=== PATIENT | female | born 1960 | race Caucasian/White ===

== ENCOUNTER → 2024-09-11 08:00 | Outpatient (BNVA) | payer MEDICARE, SELFPAY | PROVIDERS: PCP Electrodiagnostic Medicine; Visit Provider Physician Assistant | DX: S52.502A Unspecified fracture of the lower end of left radius, initial encounter for closed fracture (principal); S52.602A Unspecified fracture of lower end of left ulna, initial encounter for closed fracture; W19.XXXA Unspecified fall, initial encounter; Y93.89 Activity, other specified | CPT/HCPCS: 73110 ==

== ENCOUNTER 2024-09-11 09:04 | Outpatient (CLI) | payer MEDICARE, SELFPAY | END 2024-09-11 09:05 | disposition home or self-care (01) | LOC: SPT 09:06 | PROVIDERS: PCP Electrodiagnostic Medicine; Visit Provider Physician Assistant | DX: Z46.89 Encounter for fitting and adjustment of other specified devices (principal); S62.102S Fracture of unspecified carpal bone, left wrist, sequela; X58.XXXS Exposure to other specified factors, sequela | CPT/HCPCS: 99204; L3908 ==

== ENCOUNTER 2024-09-17 09:45 | Day surgery (SDC) | payer MEDICARE, SELFPAY ==
[2024-09-17] VITALS (9 sets, daily range): BP systolic 124–167; BP diastolic 55–89; PULSE 69–81; RESP 16; TEMP 36.2; O2SAT 94–100; BMI 22.3
--- NOTE | 2024-09-17 | XR_ITS ---
WS: [id number] Exam: XR wrist LT 2V [id number] Date/Time of Exam: 09/17/2024 12:00 AM Reason For Exam: IMANI PICS Intraoperative images of the LEFT wrist demonstrate plate and screw fixation involving a fracture of the distal radius. Fracture alignment is anatomic for healing.
[2024-09-17] MEDS: acetaminophen 1,000 MG/100 ML PIGGYBACK 400 MG IV (10:45)
[2024-09-17] MEDS: ketorolac 30 mg/mL INJ IVP (10:45)
[2024-09-17] MEDS: sodium chloride 0.9% 1,000 ML 30 ML IV (10:47)
--- NOTE | 2024-09-17 10:50 | W.PM.OPSUD ---
Surgery/Procedure H&P Update DATE OF PROCEDURE: September 17, 2024 DATE H&P PERFORMED: 09/11/24 H&P UPDATE INFORMATION: I have reviewed H&P completed within last 30 days, I have examined patient prior to procedure, No changes to prior documentation and Changes to prior documentation as noted here PREOP DIAGNOSIS: Left distal radius and ulnar styloid fracture PRIMARY INDICATION FOR PROCEDURE: Left distal radius and ulnar styloid fracture with dorsal angulation PLANNED PROCEDURE: Operation Date: 09/17/24 12:10 Proposed Procedures p ORIF Wrist ORIF Distal Radius(Left) - Burton Santoyo DO
--- NOTE | 2024-09-17 10:51 | ANES.PREANE2 ---
Pre-Anesthetic Assessment Height/Weight: Height 5 ft 4 in Weight 130 lb O2 Del Method Room Air 09/17/24 10:28 Preop Diagnosis: Radial fracture Operation Date: 09/17/24 12:10 Proposed Procedures p ORIF Wrist ORIF Distal Radius(Left) - Burton Santoyo, DO Was Beta Luly taken within 24 hours: N/A Was Clonidine taken within 24 hours: N/A Last intake: Intake Last Liquid Date 09/16/24 Last Liquid Time 20:00 Last Solid Date 09/16/24 Last Solid Time 20:00 Social No alcohol and No tobacco Exam alert, oriented x 3, clear to auscultation bilaterally and regular rate & rhythm Airway Submandibular: within normal limits Cervical ROM: within normal limits Mallampati: Class III Dentition: full Anesthetic Plan ASA status: 2 Anesthesia: General Other: No prior issues with anesthesia NPO since yesterday history of hypertension on amlodipine GERD on omeprazole Denies any pulmonary issues METs greater than 4 Plan for general anesthesia with preop nerve block Medications/Allergies Home Medications Medication Instructions Recorded Confirmed Last Taken Type simvastatin 20 mg tablet 20 mg PO DAILY 12/28/19 09/16/24 09/16/24 History 10in velcro wrist brace #1 ea 09/11/24 09/11/24 Unknown Rx amlodipine 5 mg tablet 5 mg PO DAILY 09/11/24 09/16/24 09/17/24 History escitalopram oxalate 20 mg tablet 20 mg PO DAILY 09/11/24 09/16/24 09/16/24 History hydroxyzine HCl 10 mg tablet 10 mg PO TID PRN Nausea 09/11/24 09/16/24 Unknown History omeprazole 40 mg capsule,delayed 40 mg PO BID 09/11/24 09/16/24 09/16/24 History release Allergies Allergy/AdvReac Type Severity Reaction Status Date / Time No Known Allergies Allergy Verified 09/11/24 08:10 Current Medications Generic Name Dose Route Start Last Admin Trade Name Freq PRN Reason Stop Dose Admin Sodium Chloride 1,000 mls @ 30 mls/hr 09/17/24 10:00 09/17/24 10:47 Sodium Chloride 0.9% IV 09/18/24 09:59 30 mls/hr .Q24H SEYMOUR Administration PFSH Anesthesia Social History Smoking and tobacco/nicotine status: never used tobacco/nicotine Data Anesthesia Cardiac Studies: No Data to Display
--- NOTE | 2024-09-17 11:06 | ANES.PROC ---
Anesthesia Procedures Procedure/Date: 09/17/24 Nerve Block ^: Nerve Block 1: Main Anesthesia: other (100mcg fentanyl, 2mg versed) Time Out Performed: Yes Consent: requested by attending/covering physician and from patient Nerve block location: supraclavicular Anesthesia monitors applied: pulse oximetry, EKG, BP cuff and oxygen Nerve block position: supine Anesthetic Used: ropivicaine 0.5% Amount of anesthesia used (mL): 30 Ultrasound used to: recognize landmarks Nerve Stimulator Used?: Yes Interscalene/Femoral BLK: other needle (pjunk 4inch) Injection: neg aspiration of heme Patient Tolerated Procedure: well Complications: none
--- NOTE | 2024-09-17 11:19 | PC.NURSE ---
1100: left shoulder nerve block performed by KETTY. Using ultrasound guidance 30 ml of .5% ropivicaine was injected
[2024-09-17] MEDS: ceFAZolin 2,000 MG in sodium chloride 0.9% (plus) 50 ML 100 MG IV (11:42)
--- NOTE | 2024-09-17 14:06 | P.BOP_ITS ---
Date of Procedure: 09/17/2024 Surgeon: Burton Santoyo DO Supervisor Felting(s): None Procedure(s) performed: Left distal radius open reduction internal fixation (2 part extra-articular) Findings of the procedure(s): Patient is found to have 2 part extra-articular left distal radius fracture with considerable dorsal angulation patient underwent procedure as planned without issues or complications with volar plating. Placed in a volar splint. Will follow-up in the orthopedic office in roughly 2 weeks postop for splint takedown and incision check and suture Estimated blood loss: 10 mL Specimen(s) removed: None Post-operative diagnosis: Left distal radius and ulnar styloid fracture
--- NOTE | 2024-09-17 14:07 | P.OP_ITS ---
Operative Report Date of procedure: September 17, 2024 Surgeon: Burton Santoyo DO Procedure: Preop Diagnosis ?Left?distal?radius fracture ? Procedure: Post-op diagnosis: Same, 2 part extra-articular Procedure done: Left?distal?radius open reduction internal fixation, 2 part extra-articular Implants: ?Arthrex left distal radius narrow sterile implant kit Surgeon: Burton Santoyo DO Anesthesia: General and nerve Block (Regional) Estimated blood loss: 10 mL Tourniquet time: 30 minutes IV fluids: See anesthesia record Complications: None Findings: See operative report narrative Condition: stable Disposition: same day Brief History: Patient is a 64-year-old female who presented to my office for a left?distal?radius fracture.? Patient has significant dorsal comminution and angulation. patient active and at this point time through shared decision making patient like to proceed with a left?distal?radius?ORIF.? We had a detailed discussion in the office about nonoperative and operative intervention.? At this point time I feel through shared decision? best option would be open reduction internal fixation she is active and already has a considerable dorsal angulation?? as result through shared decision making patient would like to proceed with?ORIF?left?distal?radius fracture.? Detail the risk benefits complication alternatives to treatment option.? Understanding risk for surgery patient elects to proceed with surgical intervention.? All questions been answered at this time. Procedure: Patient seen and evaluated in the preoperative holding area.? Consent reviewed and signed with patient.? Correct extremities were marked and consent was revie wed and signed.? Patient was seen and evaluated by anesthesia department.? Underwent regional anesthesia. Once cleared for surgery pt was taken back to the operative suite.? Patient was then transported into the operative suite and kept on the OR gurney, all bony prominences well-padded patient was appropriate secured to bed in supine position.? An armboard was applied to the left upper extremity.? The left upper extremity had a nonsterile tourniquet applied.? Patient subsequently was then prepped and draped in standard orthopedic fashion she underwent anesthesia per the anesthesia department.? A final timeout was performed.? Patient received appropriate preoperative antibiotics. Prior to sterile prep I did x-ray her arm and determine incised for a sterile implant size narrow volar distal radius locking plate with Arthrex. Esmarch was used exsanguinate the left upper extremity and tourniquet was insufflated to 250 mmHg. A standard modified FCR volar approach was performed to the left?distal?radius.? Sharp scalpel incision through skin and subcutaneous tissue.? I then switched to Littler dissection scissors identify the FCR tendon releases out of the sheath both proximally and?distally mobilized the tendon ulnarly and then subsequently incised the floor of the FCR tendon sheath with care to just incise the floor.? I then bluntly sweep the FPL tendon muscle belly ulnarly and placed blunt self- retaining retractor.? At this point time I direct visualization of the pronator quadratus which was incised in standard L fashion off the?radial and?distal?border in the?distal?radius and fracture site was scraped clean of interposed muscle belly.? I then identified the 2 part extra- articular?distal?radius fracture.? This was subsequently opened above and freed of interposing muscle belly as well as periosteum and fracture hematoma.? I did have to utilize my [place] which was placed through the fracture pattern and disengage the fracture and performed manual manipulation and anatomic reduction of the?distal?radius fracture.? ?Once satisfied with reduction and had appropriate anatomic reduction of the volar cortex.? This was confirmed with mini C arm in multiple orthogonal i maging.? At this point time? I selected a Arthrex anatomic?distal?radius plate sterile implant kit utilizing a narrow 3-hole plate which would have appropriate spread?distally.? This was then placed up to the?distal?radius while maintaining my reduction, pins were placed?distally and proximally to confirm appropriate placement of the plate along the?distal?radius.? Minor adjustments were made and once I was satisfied I then subsequently drilled a bicortical 3.5 screw proximally in the oblong hole to allow for appropriate sliding of the?distal?radius plate appropriately to perfect position on the?distal?radius.? This had excellent fixation and purchase and brought the plate to bone.? While maintaining my reduction I then confirmed in multiple orthogonal imaging that my plate was in appropriate position.? Once satisfied with my position I then subsequently placed the peek targeting guide on the?distal?locking screws with Arthrex.? The locking guide was then subsequently loaded and I subsequently drilled and placed a fully threaded cortical screw to compress the plate to bone for the?distal?fracture fragment.? This was performed with plan to then remove this and placed a shorter locking screw had bicortical fixation with excellent purchase and appropriate reduction of my volar tilt and bringing plate to bone of the?distal?fragment and plate.? Once I was satisfied with my plate position as well as reduction of the?distal?radius which was confirmed on AP oblique and lateral imaging I then subsequently drilled measured and placed 3 locking screws around this cortical screw.? Then I subsequently removed the cortical screw and placed a shorter locking screw that did not penetrate the dorsal cortex.?? This completed my?distal?fixation.? I did utilize mini C arm to confirm appropriate placement of the screws these were all within the?distal?radius and no joint involvement within the?radiocarpal joint or the DRUJ.? These had appropriate subchondral support and maintenance of reduction and fixation of the?distal?radius fracture.? ?I then turned my attention proximally and then I screwed in the locking guides for my final to screws proximally these were then subsequently drilled measured and appropriate length locking screws were then placed proximally with excellent fixation and locking technology into the plate.? This completed my construct.? The peek guide was subsequently removed and final imaging of the left?distal?radius open reduction internal fixation was taken of AP lateral as well and is orthogonal imaging.? I then took a inclination view which showed my? radial styloid screw was out of the penetration of the joint.? All my?distal?screws were appropriate length did not penetrate dorsal cortex and did not penetrate the joint.? This completed my fixation.? Smooth wrist range of motion was then noted with no evidence of clicking. Wrist was then taken through pronation supination and stressed the DRUJ which was found to be stable.? The wound was then thoroughly irrigated.? Tourniquet was then subsequently deflated.? Hemostasis satisfactory with bipolar electrocautery.? I then subsequently placed interrupted 3-0 Vicryl sutures for subcutaneous tissue and then subsequently placed a nylon the skin for closure.? Incision was then dressed with Xeroform 4 x 4's Kerlix cast padding and a volar Ortho-Glass splint was then applied with Cornelio wrap and placed in a sling.? Disposition: Patient taken to PACU in stable condition recovering well receive appropriate discharge instructions as well as pain medication postoperatively.? Maintain splint until follow-up.? Nonweightbearing to operative upper extremity We will follow-up with orthopedics in the office in 2 weeks.? If any questions or concerns feel free to contact the office.
--- NOTE | 2024-09-17 14:35 | ANE.PACU2 ---
Inpatient post-anesthesia follow up: Airway intact: Yes Vital signs: Temperature 97.2 F Pulse Rate 72 Respiratory Rate 16 Blood Pressure 167/66 Pulse Oximetry 94 Oxygen Delivery Me thod Room Air Oxygen Flow Rate 6 Fraction of Inspir ed Oxygen Hydration adequate: Yes Nausea and vomiting: No Pain level: 1 Mental status: Baseline
== END 2024-09-17 14:35 | disposition home or self-care (01) ==
PROVIDERS: PCP Electrodiagnostic Medicine; Visit Provider Student in an Organized Health Care Education/Training Program
PROC: (CPT 25607; principal; 2024-09-17 12:10)
DX: S52.552A Other extraarticular fracture of lower end of left radius, initial encounter for closed fracture (principal); W19.XXXA Unspecified fall, initial encounter; K21.9 Gastro-esophageal reflux disease without esophagitis
CPT/HCPCS: 25607; 73100; 76000; C1713; J0131; J0690; J1100; J1885; J2250; J2405; J2704; J3010; J7030

== ENCOUNTER 2024-10-08 06:00 | Outpatient (CLI) | payer MEDICARE, SELFPAY | END 2024-10-14 13:54 | disposition home or self-care (01) | LOC: SPT 10-14 13:53 | PROVIDERS: Visit Provider Physician Assistant | DX: Z46.89 Encounter for fitting and adjustment of other specified devices (principal); S52.592D Other fractures of lower end of left radius, subsequent encounter for closed fracture with routine healing; X58.XXXD Exposure to other specified factors, subsequent encounter | CPT/HCPCS: 99024; L3908 ==

== ENCOUNTER → 2024-10-08 14:46 | Outpatient (BNVA) | payer MEDICARE, SELFPAY | PROVIDERS: PCP Electrodiagnostic Medicine; Visit Provider Physician Assistant | DX: S52.502D Unspecified fracture of the lower end of left radius, subsequent encounter for closed fracture with routine healing; Z98.890 Other specified postprocedural states; X58.XXXD Exposure to other specified factors, subsequent encounter | CPT/HCPCS: 73110 ==

== ENCOUNTER 2024-10-14 07:40 | Outpatient (RCR) | payer MEDICARE, SELFPAY | END 2024-11-03 23:59 | disposition home or self-care (01) | LOC: SOT 07:40 | PROVIDERS: Visit Provider Physician Assistant | DX: Z98.890 Other specified postprocedural states (principal); Z87.81 Personal history of (healed) traumatic fracture; S52.502A Unspecified fracture of the lower end of left radius, initial encounter for closed fracture | CPT/HCPCS: 97022; 97035; 97110; 97140; 97166; 97530; G0283 ==

== ENCOUNTER → 2024-10-23 10:16 | Outpatient (BNVA) | payer MEDICARE, SELFPAY | PROVIDERS: Visit Provider Physician Assistant | DX: Z98.890 Other specified postprocedural states (principal); S52.502D Unspecified fracture of the lower end of left radius, subsequent encounter for closed fracture with routine healing; X58.XXXD Exposure to other specified factors, subsequent encounter | CPT/HCPCS: 73110; 99024 ==

== ENCOUNTER 2024-11-04 06:00 | Outpatient (RCR) | payer MEDICARE, SELFPAY | END 2024-12-04 23:59 | disposition home or self-care (01) | LOC: SOT 06:00 | PROVIDERS: Visit Provider Physician Assistant | DX: S52.502A Unspecified fracture of the lower end of left radius, initial encounter for closed fracture (principal); X58.XXXA Exposure to other specified factors, initial encounter | CPT/HCPCS: 97022; 97110; 97140 ==

== ENCOUNTER → 2024-12-01 09:40 | Outpatient (BNVA) | payer MEDICARE, SELFPAY | PROVIDERS: Visit Provider Physician Assistant | DX: Z98.890 Other specified postprocedural states (principal); S52.502D Unspecified fracture of the lower end of left radius, subsequent encounter for closed fracture with routine healing; X58.XXXD Exposure to other specified factors, subsequent encounter | CPT/HCPCS: 73110; 99024 ==